=== PATIENT | female | born 1985 | race Caucasian/White ===

== ENCOUNTER 2022-12-15 03:38 | Observation (INO) ==
[2022-12-15 04:05] VITALS: BMI 30.2
[2022-12-15] MEDS ORDERED: CLEOCIN 600 MG IV PREMIX 600 MG/50 ML BAG IV ONE ×2 (04:35→05:04)
[2022-12-15] MEDS ORDERED: TORADOL 30 MG VIAL IVP ONE (04:35)
--- NOTE | 2022-12-15 04:35 | DR.EXTPAIN ---
HPI Time seen Time Seen by Provider: 12/15/22 04:35 PCP Primary Care Physician: DERICK HPI Comment HPI Comment: PATIENT IS 37YR OLD FEMALE IN ER WITH SWELLING AND PAIN IN RIGHT HAND. SHE WORKS AT [employer] AND PICKED UP SOME BOARDS AND PLINTER PUNCTURED HER HAND ON FRIDAY. HAVING THROBBING 10/10 PAIN. RED BUT NO DRAINAGE NOT NOTED. NO FEVER. Complaint/Symptoms Chief Complaint Doctor Comments: PAIN, SWELLING AND REDNESS RIGHT HAND AND PUNCTURE WOUND TIMES 2 DAYS. Chief Complaint:: PT STATED SINCE FRIDAY HER RIGHT HAND HAS BEEN SWOLLEN AND THROBBING, SHE CURRENTLY WORKS AT A [employer] AND SAID SHE PICKED UP SOME BOARDS AT WORK AND THINKS SHE MAY HAVE SPLINTERS IN HER HAND CAUSING IT TO BE SWOLLEN/RED/PAINFUL. Self Treatment fo Chief Complaint: NONE COVID-19 Coronavirus risk:travel/contact w/high risk person: No Has patient experienced Coronavirus symptoms: No Nurses notes reviewed Nurses Notes Review: Yes Source History Provided: Patient Mode of arrival Mode of Arrival: Ambulatory Timing Onset of Chief Complaint: 12/12/22 PMH PMH Past Medical History: Yes Past Medical History: GERD Past Surgical History: No Family History History of Family Medical Conditions: Yes Family Medical History: Diabetes Mellitus, Cancer and Heart Failure Social History Alcohol Use: Occasionally Do you use any recreational Drugs:: No Lives With: Significant Other Lives Where: Home Travel Risk Coronavirus risk:travel/contact w/high risk person: No Has patient experienced Coronavirus symptoms: No Infectious screening In the last 2 months have you had wt loss of >10#?: NO Have you had fever, night sweats or hemotysis?: No Have you traveled outside the country in the last 6 months?: No Isolation: Standard ROS Review of Systems Constitutional: No Symptoms Reported; negative Fever Eyes: No Symptoms Reported ENTM: No Symptoms Reported Respiratoy: No Symptoms Reported Cardiovascular: No Symptoms Reported Gastrointestinal/Abdominal: No Symptoms Reported Genitourinary: No Symptoms Reported Neurological: No Symptoms Reported Musculoskeletal: Hand (SWELLING, REDNESS AND PAIN RIGHT HAND.) Integumentary: Other (SWELLING, REDNESS AND TENDERNESS RT HAND. ) Hematologic/Lymphatic: No Symptoms Reported Endocrine: No Symptoms Reported Psychiatric: No Symptoms Reported All Other Systems: Reviewed and Negative PE Vital Signs Vitals: Temperature 98.7 F Pulse Rate 116 Respiratory Rate 20 Blood Pressure 136/99 O2 Sat by Pulse Oximetry 97 General Limitations: No Limitations General Appearance: Alert and In No Apparent Distress Head Head Exam: Normal Inspection Eyes Eye exam: Normal Appearance; negative Scleral Icterus or Conjunctival Injection ENT ENT Exam: Normal Exam Neck Neck Exam: Normal Inspection Chest Chest Inspection: Normal Inspection Respiratory Respiratory Exam: Normal Lung Sounds Bilat Respiratory Exam: Bilateral: Clear to Auscultation Cardiovascular Cardiovascular Exam: Regular Rate Abdominal Exam Abdominal Exam: Normal Inspection Extremities Extremities Exam: Tenderness (RT HAND WITH SWELLING AND REDNESS.) Back Back Exam: Normal Inspection Neurological Neurological Exam: Alert Psychiatric Psychiatric Exam: Normal Affect and Normal Mood Skin Skin Exam: Erythema Type of Lesion: Abscess (CELLULITIS RT HAND.) Distribution: RUE Description: Tenderness MDM Differential Diagnosis Differential Diagnosis: Other (CELLULITIS RT HAND. PUNCTURE WOUND RT HAND.) COURSE Treatment Treatment: SEE ORDERS DONE WHILE PATIENT WAS IN ER. Consultation Consultation Comments: DISCUSSED PATIENT WITH DR. ZAIDI. SHE WILL ADMIT PATIENT. Education/Counseling Education/Counseling: Patient and Family Educated On: Treatment and Diagnosis ROR Labs Reviewed Laboratory Results Reviewed?: Yes Result Diagrams: 12/15/22 04:49 12/15/22 04:49 Laboratory: WBC 11.7 X10^3/uL (3.6-10.0) H 12/15/22 04:49 RBC 4.55 X10^6/uL (3.5-5.4) 12/15/22 04:49 Hgb 13.3 g/dL (12.0-16.0) 12/15/22 04:49 Hct 39.7 % (36.0-47.0) 12/15/22 04:49 MCV 87.1 fL (80.0-100.0) 12/15/22 04:49 MCH 29.3 pg (27.0-34.0) 12/15/22 04:49 MCHC 33.6 g/dL (33.0-35.0) 12/15/22 04:49 RDW 13.5 % (11.6-16.5) 12/15/22 04:49 Plt Count 360 X10^3/uL (150.0-450.0) 12/15/22 04:49 MPV 7.2 fL (7.4-11.0) L 12/15/22 04:49 Neut % (Auto) 69.3 % (42.0-75.0) 12/15/22 04:49 Lymph % (Auto) 19.4 % (21.0-51.0) L 12/15/22 04:49 [place] % (Auto) 7.6 % (0.0-13.0) 12/15/22 04:49 Eos % (Auto) 2.8 % (0.9-2.9) 12/15/22 04:49 Baso % (Auto) 0.9 % (0.2-1.0) 12/15/22 04:49 Neut # (Auto) 8.1 x10^3/uL (2.2-4.8) H 12/15/22 04:49 Lymph # (Auto) 2.3 X10^3/uL (1.3-2.9) 12/15/22 04:49 [place] # (Auto) 0.9 x10^3/uL (0.3-0.8) H 12/15/22 04:49 Eos # (Auto) 0.3 x10^3/uL (0.0-0.2) H 12/15/22 04:49 Baso # (Auto) 0.1 X10^3/uL (0.0-0.1) 12/15/22 04:49 Absolute Nucleated RBC 0.0 /100WBC 12/15/22 04:49 Sodium 135 mmol/L (136-145) L 12/15/22 04:49 Corrected Sodium 135 mmol/L (136-145) L 12/15/22 04:49 Potassium 3.8 mmol/L (3.5-5.1) 12/15/22 04:49 Chloride 104 mmol/L (98-107) 12/15/22 04:49 Carbon Dioxide 24.9 mmol/L (21-32) 12/15/22 04:49 BUN 12 mg/dL (7-18) 12/15/22 04:49 Creatinine 0.77 mg/dL (0.55-1.02) 12/15/22 04:49 Est GFR (MDRD) Af Amer > 60 (>60) 12/15/22 04:49 Est GFR (MDRD) Non-Af > 60 (>60) 12/15/22 04:49 Glucose 120 mg/dL (65-99) H 12/15/22 04:49 Calcium 8.7 mg/dL (8.5-10.1) 12/15/22 04:49 Corrected Calcium TNP 12/15/22 04:49 Total Bilirubin 0.20 mg/dL (0.2-1.0) 12/15/22 04:49 AST 13 Units/L (15-37) L 12/15/22 04:49 ALT 19 Units/L (12-78) 12/15/22 04:49 Alkaline Phosphatase 108 Units/L (46-116) 12/15/22 04:49 Total Protein 7.3 g/dL (6.4-8.2) 12/15/22 04:49 Albumin 3.6 g/dL (3.4-5.0) 12/15/22 04:49 Globulin 3.7 g/dL (2.5-4.5) 12/15/22 04:49 Albumin/Globulin Ratio 1.0 Ratio (1.1-2.1) L 12/15/22 04:49 Opioid Opioid Risk Tool Age (Sammy box if 16-45): Yes Total: 1 Total Score Risk Category: Low Risk Copyright: Yash LARSON predicting aberrant behaviors Discharge Plan Diagnosis Discharge Problem: Cellulitis of hand, right, Puncture wound of hand, right Discharge Plan Patient Disposition: ADMITTED INPATIENT Condition: Stable
[2022-12-15] MEDS ORDERED: ADACEL or BOOSTRIX TDaP VACCINE IM ONE ×2 (04:39→05:04)
[2022-12-15] MEDS ORDERED: TORADOL 30 MG VIAL ONE (05:03)
[2022-12-15 05:11] LABS: BASOPHILS # (AUTO) 0.1 X10^3/uL (0.0-0.1); BASOPHILS % (AUTO) 0.9 % (0.2-1.0); EOSINOPHILS # (AUTO) 0.3 x10^3/uL (0.0-0.2); EOSINOPHILS % (AUTO) 2.8 % (0.9-2.9); HEMATOCRIT 39.7 % (36.0-47.0); HEMOGLOBIN 13.3 g/dL (12.0-16.0); LYMPHOCYTES # (AUTO) 2.3 X10^3/uL (1.3-2.9); LYMPHOCYTES % (AUTO) 19.4 % (21.0-51.0); MEAN CORPUSCULAR HEMOGLOBIN 29.3 pg (27.0-34.0); MEAN CORPUSCULAR HGB CONC 33.6 g/dL (33.0-35.0); MEAN CORPUSCULAR VOLUME 87.1 fL (80.0-100.0); MEAN PLATELET VOLUME 7.2 fL (7.4-11.0); MONOCYTES # (AUTO) 0.9 x10^3/uL (0.3-0.8); MONOCYTES % (AUTO) 7.6 % (0.0-13.0); NEUTROPHILS # (AUTO) 8.1 x10^3/uL (2.2-4.8); NEUTROPHILS % (AUTO) 69.3 % (42.0-75.0); RED BLOOD COUNT 4.55 X10^6/uL (3.5-5.4); RED CELL DISTRIBUTION WIDTH 13.5 % (11.6-16.5); WHITE BLOOD COUNT 11.7 X10^3/uL (3.6-10.0)
[2022-12-15 05:20] LABS: ALANINE AMINOTRANSFERASE 19 Units/L (12-78); ALBUMIN 3.6 g/dL (3.4-5.0); ALKALINE PHOSPHATASE 108 Units/L (46-116); ASPARTATE AMINO TRANSFERASE 13 Units/L (15-37); BLOOD UREA NITROGEN 12 mg/dL (7-18); CALCIUM 8.7 mg/dL (8.5-10.1); CARBON DIOXIDE 24.9 mmol/L (21-32); CHLORIDE 104 mmol/L (98-107); COR NA(FOR HYPERGLY) 135 mmol/L (136-145); CREATININE 0.77 mg/dL (0.55-1.02); SODIUM 135 mmol/L (136-145); TOTAL PROTEIN 7.3 g/dL (6.4-8.2); eGFR NON BLACK RACES > 60 (>60)
[2022-12-15] MEDS ORDERED: NS 1,000 ML IV 1,000 ML ONE (05:20)
[2022-12-15] MEDS: NS 1,000 ML IV 1,000 ML IV SCH ×3 (05:24→23:00)
[2022-12-15] MEDS ORDERED: ZOFRAN TAB 4 MG PO PRN (07:21)
--- NOTE | 2022-12-15 11:00 | DR.H&P ---
H&P History & Physical for Day of: H&P Date: 12/15/22 Chief Complaint Chief Complaint: right hand pain and swelling Allergies Allergies Allergy/AdvReac Type Severity Reaction Status Date / Time No Known Allergies Allergy Verified 12/15/22 05:00 History of Present Illness History of Present Illness: Ms Luz is a 37y/o female with no pertinent medical history presented with worsening right hand pain and swelling. She had an injury at work on where she was moving some wooden boards and had some splinters. She had a puncture wound by the thumb and noticed increased redness, pain and swelling. She states there was some drainage from that area. She had some tightness in her hand. In the ER, all her labs were normal. Blood Cx were collected and she was started on IV Clindamycin. She states redness and swelling is slightly better today. Her pain has been well-controlled. She has not noticed any drainage. Denies fever or chills. She did get the Tdap vaccine in the ER. Labs reviewed Plan: will order CT of right hand to evaluate further, surgery consult for possible I&D. Continue pain control and IV Clindamycin. Follow Cx. Monitor AM labs. Past Medical History Past Medical History: GERD Family History Family Medical History: Diabetes Mellitus, Cancer, Coronary Artery Disease and Hypertension Social History Does patient currently use any type of tobacco product: Yes Have you used tobacco products in the last 12 months: Yes Type of Tobacco Use: Cigarettes How many years tobacco product used: 10 Does any household member use tobacco: Yes Alcohol Use: None Drug Use: None Medications Home Medications: No Known Allergies Allergy (Verified 12/15/22 05:00) CONTINUE taking the following medications NK 12/15/22 [History] Labs Result Diagrams: 12/15/22 04:49 12/15/22 04:49 Labs: Laboratory WBC 11.7 X10^3/uL (3.6-10.0) H 12/15/22 04:49 RBC 4.55 X10^6/uL (3.5-5.4) 12/15/22 04:49 Hgb 13.3 g/dL (12.0-16.0) 12/15/22 04:49 Hct 39.7 % (36.0-47.0) 12/15/22 04:49 MCV 87.1 fL (80.0-100.0) 12/15/22 04:49 MCH 29.3 pg (27.0-34.0) 12/15/22 04:49 MCHC 33.6 g/dL (33.0-35.0) 12/15/22 04:49 RDW 13.5 % (11.6-16.5) 12/15/22 04:49 Plt Count 360 X10^3/uL (150.0-450.0) 12/15/22 04:49 MPV 7.2 fL (7.4-11.0) L 12/15/22 04:49 Neut % (Auto) 69.3 % (42.0-75.0) 12/15/22 04:49 Lymph % (Auto) 19.4 % (21.0-51.0) L 12/15/22 04:49 [place] % (Auto) 7.6 % (0.0-13.0) 12/15/22 04:49 Eos % (Auto) 2.8 % (0.9-2.9) 12/15/22 04:49 Baso % (Auto) 0.9 % (0.2-1.0) 12/15/22 04:49 Neut # (Auto) 8.1 x10^3/uL (2.2-4.8) H 12/15/22 04:49 Lymph # (Auto) 2.3 X10^3/uL (1.3-2.9) 12/15/22 04:49 [place] # (Auto) 0.9 x10^3/uL (0.3-0.8) H 12/15/22 04:49 Eos # (Auto) 0.3 x10^3/uL (0.0-0.2) H 12/15/22 04:49 Baso # (Auto) 0.1 X10^3/uL (0.0-0.1) 12/15/22 04:49 Absolute Nucleated RBC 0.0 /100WBC 12/15/22 04:49 Sodium 135 mmol/L (136-145) L 12/15/22 04:49 Corrected Sodium 135 mmol/L (136-145) L 12/15/22 04:49 Potassium 3.8 mmol/L (3.5-5.1) 12/15/22 04:49 Chloride 104 mmol/L (98-107) 12/15/22 04:49 Carbon Dioxide 24.9 mmol/L (21-32) 12/15/22 04:49 BUN 12 mg/dL (7-18) 12/15/22 04:49 Creatinine 0.77 mg/dL (0.55-1.02) 12/15/22 04:49 Est GFR (MDRD) Af Amer > 60 (>60) 12/15/22 04:49 Est GFR (MDRD) Non-Af > 60 (>60) 12/15/22 04:49 Glucose 120 mg/dL (65-99) H 12/15/22 04:49 Calcium 8.7 mg/dL (8.5-10.1) 12/15/22 04:49 Corrected Calcium TNP 12/15/22 04:49 Total Bilirubin 0.20 mg/dL (0.2-1.0) 12/15/22 04:49 AST 13 Units/L (15-37) L 12/15/22 04:49 ALT 19 Units/L (12-78) 12/15/22 04:49 Alkaline Phosphatase 108 Units/L (46-116) 12/15/22 04:49 Total Protein 7.3 g/dL (6.4-8.2) 12/15/22 04:49 Albumin 3.6 g/dL (3.4-5.0) 12/15/22 04:49 Globulin 3.7 g/dL (2.5-4.5) 12/15/22 04:49 Albumin/Globulin Ratio 1.0 Ratio (1.1-2.1) L 12/15/22 04:49 Review of Systems Constitutional: No Symptoms Reported Eyes: No Symptoms Reported ENT: No Symptoms Reported Respiratory: No Symptoms Reported Cardiovascular: No Symptoms Reported Gastrointestinal: No Symptoms Reported Genitourinary: No Symptoms Reported Musculoskeletal: Hand Pain Skin: Wound Neurological: No Symptoms Reported Physical Exam Vital Signs: Temperature 98.0 F Pulse Rate [Left Brachial] 89 Pulse Rate 116 Respiratory Rate 20 Blood Pressure 136/99 O2 Sat by Pulse Oximetry 96 Oriented: Normal Eyes: Normal Ear: Normal Nose: Normal Throat: Normal Respiratory: Clear Throughout Cardiovascular: Normal Auscultation: Bowel Sounds: Normal Palpation: Normal Tenderness: Normal Skin: Tender and Wound (right hand erythema, swelling, tenderness worse around the thumb, limited ROM) Musculoskeletal: Right and Hand Psychiatric: Normal Mood Description: Calm Affect: Normal Speech Pattern: Clear and Appropriate Assessment/Plan (1) Cellulitis of right hand: Status: Acute (2) Puncture wound: Status: Acute Review H&P Reviewed: Yes Patient was examined?: Yes
[2022-12-15] MEDS: MORPHINE SULFATE INJ 4 MG IVP PRN (11:53)
--- NOTE | 2022-12-15 12:06 | CT ---
HISTORYswelling possible celluitis right hand punture woundSTUDYCTA right upper extremityCOMPARISONNoneTECHNIQUEMultiple axial images of the right upper extremity were obtained from the thoracic inlet to the finger tip after the administration of IV contrast. 3D reconstructions utilizing axial MIPS imaging was performed and reviewed. Dose reduction techniques including Automated Exposure Control (AEC) and adjustment of mA and kV were utilized.FINDINGSNormal opacification of the innominate artery, subclavian artery, axillary artery, brachial artery, ulnar and radial arteries as well as the palmar arch are observed. No evidence for blush injury can be identified. Minimal amount of soft tissue swelling near the thenar eminence is incidentally noted without fluid collection within the hand other remainder of the right upper extremity. Bony structures appear intact. The musculature demonstrates normal enhancement.IMPRESSIONMinimal soft tissue swelling of the thenar eminence of the hand. No fluid collection can be identified. Otherwise unremarkable CTA of the right upper extremity.Electronically signed by: JEN SCHWARTZ (Dec 15, 2022 12:05:12)
[2022-12-15] MEDS: CLEOCIN 600 MG IV PREMIX 600 MG/50 ML BAG IV SCH ×2 (13:55→21:21)
[2022-12-15] MEDS ORDERED: CLEOCIN VIAL 600 MG 600 MG in D5W 50 ML IV 50 ML IV SCH (14:00)
[2022-12-15] MEDS ORDERED: TYLENOL 500 MG TAB EXTRA STRENGTH PO PRN (17:09)
[2022-12-15] MEDS: TORADOL 30 MG VIAL IVP PRN (17:14)
--- NOTE | 2022-12-15 19:24 | DR.CONSULT ---
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 New onset of redness and swelling of the left thumb and thenar eminence. Otherwise healthy. Past Medical History Past Medical History: GERD Family History Family Medical History: Diabetes Mellitus, Cancer, Coronary Artery Disease and Hypertension Social History Does patient currently use any type of tobacco product: Yes Have you used tobacco products in the last 12 months: Yes Type of Tobacco Use: Cigarettes How many years tobacco product used: 10 Does any household member use tobacco: Yes Alcohol Use: None Drug Use: None Medications Home Medications: No Known Allergies Allergy (Verified 12/15/22 05:00) CONTINUE taking the following medications NK 12/15/22 [History] Review of Systems Constitutional: See HPI Eyes: No Symptoms Reported ENT: No Symptoms Reported Respiratory: No Symptoms Reported Cardiovascular: No Symptoms Reported Gastrointestinal: No Symptoms Reported Genitourinary: No Symptoms Reported Musculoskeletal: No Symptoms Reported Skin: See HPI Neurological: No Symptoms Reported Physical Exam Vital Signs: Temperature 97.8 F Pulse Rate [Left Brachial] 87 Pulse Rate 116 Respiratory Rate 20 Blood Pressure [Left Arm] 127/90 Blood Pressure 136/99 O2 Sat by Pulse Oximetry 98 Oriented: Normal, Time, Person and Place Eyes: Normal Ear: Normal Nose: Normal Throat: Normal Respiratory: Clear Throughout Cardiovascular: Normal : Normal Palpation: Normal Tenderness: Normal Skin: Other (redness, swelling and induration of proximal right thumb and right thenar eminence, CT showed no obvious abscess. ) Musculoskeletal: Normal Mood Description: Calm Affect: Normal Plan (1) Cellulitis of right hand: Status: Acute Plan: Continue IV antibiotics. Although no obvious abscess I think she will need incision and drainage tomorrow. (2) Puncture wound: Status: Acute
[2022-12-15] MEDS: BENADRYL CAP/TAB 25 MG PO SCH (20:40)
[2022-12-15] MEDS: TYLENOL 500 MG TAB EXTRA STRENGTH PO SCH (20:41)
[2022-12-16] MEDS: NS 1,000 ML IV 1,000 ML IV SCH ×4 (02:03→21:16)
[2022-12-16 05:46] LABS: ALANINE AMINOTRANSFERASE 19 Units/L (12-78); ALBUMIN 2.7 g/dL (3.4-5.0); ALKALINE PHOSPHATASE 85 Units/L (46-116); ASPARTATE AMINO TRANSFERASE 14 Units/L (15-37); BLOOD UREA NITROGEN 13 mg/dL (7-18); CALCIUM 7.7 mg/dL (8.5-10.1); CHLORIDE 107 mmol/L (98-107); COR CA(FOR HYPOALB) 8.7 mg/dL (8.5-10.1); CREATININE 0.74 mg/dL (0.55-1.02); SODIUM 137 mmol/L (136-145); TOTAL PROTEIN 5.6 g/dL (6.4-8.2); eGFR NON BLACK RACES > 60 (>60)
[2022-12-16] MEDS: CLEOCIN 600 MG IV PREMIX 600 MG/50 ML BAG IV SCH ×3 (05:55→21:16)
[2022-12-16 06:11] LABS: BASOPHILS # (AUTO) 0.1 X10^3/uL (0.0-0.1); BASOPHILS % (AUTO) 0.9 % (0.2-1.0); EOSINOPHILS # (AUTO) 0.3 x10^3/uL (0.0-0.2); EOSINOPHILS % (AUTO) 4.5 % (0.9-2.9); HEMATOCRIT 34.5 % (36.0-47.0); HEMOGLOBIN 11.6 g/dL (12.0-16.0); LYMPHOCYTES % (AUTO) 31.1 % (21.0-51.0); MEAN CORPUSCULAR HEMOGLOBIN 29.5 pg (27.0-34.0); MEAN CORPUSCULAR HGB CONC 33.7 g/dL (33.0-35.0); MEAN CORPUSCULAR VOLUME 87.6 fL (80.0-100.0); MEAN PLATELET VOLUME 7.2 fL (7.4-11.0); MONOCYTES # (AUTO) 0.6 x10^3/uL (0.3-0.8); MONOCYTES % (AUTO) 8.7 % (0.0-13.0); NEUTROPHILS # (AUTO) 3.6 x10^3/uL (2.2-4.8); NEUTROPHILS % (AUTO) 54.8 % (42.0-75.0); RED BLOOD COUNT 3.94 X10^6/uL (3.5-5.4); RED CELL DISTRIBUTION WIDTH 13.4 % (11.6-16.5); WHITE BLOOD COUNT 6.6 X10^3/uL (3.6-10.0)
--- NOTE | 2022-12-16 09:31 | PCM.PROG ---
Progress Note Progress Note for Day of Date of Exam: 12/16/22 Subjective Subjective: Patient seen at bedside, doing better. Her right hand redness has improved. She still has mild swelling and pain. CT did show soft tissue swelling but no obvious pus pocket. Dr Packer saw the patient and plans to do I&D today. Labs reviewed Plan: continue IV antibiotics and pain control. Follow Cx. I&D today follow wound Cx. Follow surgery recommendations. NPO for now. Monitor AM labs. Past Medical Family Social History Allergies: Allergies No Known Allergies Allergy (Verified 12/15/22 05:00) Vital Signs and I&O's Vital Signs: Temperature 98.6 F Pulse Rate [Left Brachial] 76 Pulse Rate 116 Respiratory Rate 18 Blood Pressure [Right Arm] 143/92 Blood Pressure [Left Arm] 127/90 Blood Pressure 136/99 O2 Sat by Pulse Oximetry 95 Intake and Output: Intake & Output 12/13/22 12/14/22 12/15/22 12/16/22 23:59 23:59 23:59 23:59 Intake Total 1881 / 1881 911 / 911 Balance 1881 / 1881 911 / 911 Physical Exam Oriented: Normal, Time, Person and Place Eyes: Normal Ear: Normal Nose: Normal Throat: Normal Cardiovascular: Normal Auscultation: Bowel Sounds: Normal Tenderness: Normal Skin: Other (redness, swelling and induration of proximal right thumb and right thenar eminence) Musculoskeletal: Right and Hand (limited ROM due to swelling and pain ) Psychiatric: Normal Mood Description: Calm Affect: Normal Speech Pattern: Clear and Appropriate Laboratory and Diagnostics Result Diagrams: 12/16/22 06:00 12/16/22 05:16 Labs: Laboratory WBC 6.6 X10^3/uL (3.6-10.0) 12/16/22 06:00 RBC 3.94 X10^6/uL (3.5-5.4) 12/16/22 06:00 Hgb 11.6 g/dL (12.0-16.0) L 12/16/22 06:00 Hct 34.5 % (36.0-47.0) L 12/16/22 06:00 MCV 87.6 fL (80.0-100.0) 12/16/22 06:00 MCH 29.5 pg (27.0-34.0) 12/16/22 06:00 MCHC 33.7 g/dL (33.0-35.0) 12/16/22 06:00 RDW 13.4 % (11.6-16.5) 12/16/22 06:00 Plt Count 290 X10^3/uL (150.0-450.0) 12/16/22 06:00 MPV 7.2 fL (7.4-11.0) L 12/16/22 06:00 Neut % (Auto) 54.8 % (42.0-75.0) 12/16/22 06:00 Lymph % (Auto) 31.1 % (21.0-51.0) 12/16/22 06:00 [place] % (Auto) 8.7 % (0.0-13.0) 12/16/22 06:00 Eos % (Auto) 4.5 % (0.9-2.9) H 12/16/22 06:00 Baso % (Auto) 0.9 % (0.2-1.0) 12/16/22 06:00 Neut # (Auto) 3.6 x10^3/uL (2.2-4.8) 12/16/22 06:00 Lymph # (Auto) 2.0 X10^3/uL (1.3-2.9) 12/16/22 06:00 [place] # (Auto) 0.6 x10^3/uL (0.3-0.8) 12/16/22 06:00 Eos # (Auto) 0.3 x10^3/uL (0.0-0.2) H 12/16/22 06:00 Baso # (Auto) 0.1 X10^3/uL (0.0-0.1) 12/16/22 06:00 Absolute Nucleated RBC 0.0 /100WBC 12/16/22 06:00 Sodium 137 mmol/L (136-145) 12/16/22 05:16 Corrected Sodium TNP 12/16/22 05:16 Potassium 4.1 mmol/L (3.5-5.1) 12/16/22 05:16 Chloride 107 mmol/L (98-107) 12/16/22 05:16 Carbon Dioxide 22.0 mmol/L (21-32) 12/16/22 05:16 BUN 13 mg/dL (7-18) 12/16/22 05:16 Creatinine 0.74 mg/dL (0.55-1.02) 12/16/22 05:16 Est GFR (MDRD) Af Amer > 60 (>60) 12/16/22 05:16 Est GFR (MDRD) Non-Af > 60 (>60) 12/16/22 05:16 Glucose 105 mg/dL (65-99) H 12/16/22 05:16 Calcium 7.7 mg/dL (8.5-10.1) L 12/16/22 05:16 Corrected Calcium 8.7 mg/dL (8.5-10.1) 12/16/22 05:16 Total Bilirubin 0.20 mg/dL (0.2-1.0) 12/16/22 05:16 AST 14 Units/L (15-37) L 12/16/22 05:16 ALT 19 Units/L (12-78) 12/16/22 05:16 Alkaline Phosphatase 85 Units/L (46-116) 12/16/22 05:16 Total Protein 5.6 g/dL (6.4-8.2) L 12/16/22 05:16 Albumin 2.7 g/dL (3.4-5.0) L 12/16/22 05:16 Globulin 2.9 g/dL (2.5-4.5) 12/16/22 05:16 Albumin/Globulin Ratio 0.9 Ratio (1.1-2.1) L 12/16/22 05:16 Plan (1) Cellulitis of right hand: Status: Acute (2) Puncture wound: Status: Acute
[2022-12-16] MEDS: TORADOL 30 MG VIAL IVP PRN (11:47)
[2022-12-16] MEDS ORDERED: BETADINE SOLN ONE (11:56)
[2022-12-16] MEDS ORDERED: ANCEF VIAL 1 GRAM ONE (12:13)
[2022-12-16] MEDS ORDERED: MARCAINE 0.5% ONE (12:13)
[2022-12-16] MEDS ORDERED: LR 1,000 ML IV 1,000 ML IV ONE (12:14)
[2022-12-16] MEDS ORDERED: NS 100 ML IV 100 ML ONE (12:14)
[2022-12-16] MEDS ORDERED: FENTANYL VIAL INJ 100 mcg ONE (12:28)
[2022-12-16] MEDS ORDERED: VERSED ONE (12:28)
[2022-12-16] MEDS ORDERED: POLYMYXIN B SULFATE ONE (12:37)
--- NOTE | 2022-12-16 13:21 | OR.IMMED ---
IMMEDIATE POST-OP NOTE Immediate Post-Op Note Pre-Op Diagnosis: abscess/ cellulitis right thumb and thenar eminence Post-Op Diagnosis: same Procedure: Incise and drain skin of palmar right proximal phalanx skin Description of Procedure: see operative summary Surgeon/Visual Display Manager: Ochoa Findings: as above Estimated Blood Loss: minimal Complications: none Post Hospital Plans and Medications: Return to floor, begin diet, continue IV antibiotics, await culture results, pack wound daily Final Diagnosis: as above
[2022-12-16] MEDS: MORPHINE SULFATE INJ 4 MG IVP PRN (19:42)
[2022-12-16] MEDS: TYLENOL 500 MG TAB EXTRA STRENGTH PO SCH (21:14)
[2022-12-16] MEDS: BENADRYL CAP/TAB 25 MG PO SCH (21:15)
[2022-12-17] MEDS: CLEOCIN 600 MG IV PREMIX 600 MG/50 ML BAG IV SCH ×3 (05:41→21:00)
[2022-12-17 06:39] LABS: BASOPHILS % (AUTO) 0.9 % (0.2-1.0); EOSINOPHILS # (AUTO) 0.2 x10^3/uL (0.0-0.2); HEMATOCRIT 32.3 % (36.0-47.0); LYMPHOCYTES # (AUTO) 1.6 X10^3/uL (1.3-2.9); LYMPHOCYTES % (AUTO) 32.9 % (21.0-51.0); MEAN CORPUSCULAR HEMOGLOBIN 29.7 pg (27.0-34.0); MEAN CORPUSCULAR HGB CONC 33.9 g/dL (33.0-35.0); MEAN CORPUSCULAR VOLUME 87.5 fL (80.0-100.0); MEAN PLATELET VOLUME 7.8 fL (7.4-11.0); MONOCYTES # (AUTO) 0.5 x10^3/uL (0.3-0.8); MONOCYTES % (AUTO) 10.8 % (0.0-13.0); NEUTROPHILS # (AUTO) 2.5 x10^3/uL (2.2-4.8); NEUTROPHILS % (AUTO) 50.4 % (42.0-75.0); RED CELL DISTRIBUTION WIDTH 13.2 % (11.6-16.5); WHITE BLOOD COUNT 4.9 X10^3/uL (3.6-10.0)
[2022-12-17 06:50] LABS: BLOOD UREA NITROGEN 9 mg/dL (7-18); CALCIUM 7.4 mg/dL (8.5-10.1); CARBON DIOXIDE 22.8 mmol/L (21-32); CHLORIDE 108 mmol/L (98-107); CREATININE 0.68 mg/dL (0.55-1.02); SODIUM 139 mmol/L (136-145); eGFR NON BLACK RACES > 60 (>60)
[2022-12-17] MEDS: NS 1,000 ML IV 1,000 ML IV SCH ×4 (08:48→22:00)
[2022-12-17] MEDS: TYLENOL 500 MG TAB EXTRA STRENGTH PO SCH (20:38)
[2022-12-17] MEDS: BENADRYL CAP/TAB 25 MG PO SCH (20:38)
--- NOTE | 2022-12-17 23:06 | NOTE.SOAP ---
Soap Note Note for Day of Date of Exam: 12/17/22 Subjective Data Subjective Data: s/p I & D abscess/cellulitis right thenar eminence . Objective Data Temperature: 98.1 F Pulse Rate: 92 Respiratory Rate: 20 Blood Pressure: 114/68 O2 Sat by Pulse Oximetry: 96 Objective Data: Wound to be visualized tomorrow. Wound growing gram positive cocci. Assessment Assessment: Cellulitis right thenar eminence . Plan Plan: Hopefully d/c home with daily wound care and po antibiotics if final culture and sensitivities back.
[2022-12-18] MEDS: NS 1,000 ML IV 1,000 ML IV SCH ×3 (01:30→10:38)
[2022-12-18] MEDS: CLEOCIN 600 MG IV PREMIX 600 MG/50 ML BAG IV SCH (05:14)
[2022-12-18 08:37] VITALS: BP 127/74
[2022-12-18] MEDS ORDERED: STERILE WATER IRRIGATION IR ONE (09:16)
[2022-12-18] MEDS: TORADOL 30 MG VIAL IVP PRN (09:32)
--- NOTE | 2022-12-18 11:49 | W.DIS.FURT ---
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 Presented with redness and swelling of the proximal palmar right thumb and thenar eminence with redness. CT scan did not show obvious abscess however there was fluctuance noted. She was admitted at that time and placed on IV antibiotics. The next day , the 16 of December she underwent incision and drainage in this area. She has done well. Redness is resolving. Cultures grew methicillin-sensitive staphylococcus aureus. She is discharged home on clindamycin 150 mg four times a day and will follow up with me in 1 week. She will pack the wound daily. Vital Signs: Vital Signs (72 hours) 12/17/22 23:11 12/15/22 11:53 12/15/22 12:23 Temperature 98.1 F Pulse Rate 92 H Pulse Rate [Left Brachial] Respiratory Rate 20 20 20 Blood Pressure 114/68 Blood Pressure [Left Arm] Blood Pressure [Right Arm] O2 Sat by Pulse Oximetry 96 Oxygen Delivery Method 12/15/22 12:00 12/15/22 16:00 12/15/22 17:14 Temperature 97.8 F 97.8 F Pulse Rate Pulse Rate [Left Brachial] 102 H 87 Respiratory Rate 20 18 20 Blood Pressure Blood Pressure [Left Arm] 144/78 127/90 Blood Pressure [Right Arm] O2 Sat by Pulse Oximetry 98 98 Oxygen Delivery Method Room Air 12/15/22 17:44 12/15/22 20:41 12/15/22 19:00 Temperature Pulse Rate Pulse Rate [Left Brachial] Respiratory Rate 20 18 Blood Pressure Blood Pressure [Left Arm] Blood Pressure [Right Arm] O2 Sat by Pulse Oximetry Oxygen Delivery Method Room Air 12/15/22 20:00 12/15/22 21:41 12/16/22 00:00 Temperature 98.4 F 98.2 F Pulse Rate Pulse Rate [Left Brachial] 82 75 Respiratory Rate 18 18 18 Blood Pressure Blood Pressure [Left Arm] Blood Pressure [Right Arm] 121/69 121/83 O2 Sat by Pulse Oximetry 97 97 Oxygen Delivery Method Room Air Room Air 12/16/22 04:00 12/16/22 07:00 12/16/22 08:00 Temperature 97.9 F 98.6 F Pulse Rate Pulse Rate [Left Brachial] 77 76 Respiratory Rate 18 18 Blood Pressure Blood Pressure [Left Arm] Blood Pressure [Right Arm] 132/82 143/92 O2 Sat by Pulse Oximetry 98 95 Oxygen Delivery Method Room Air Room Air Room Air 12/16/22 11:39 12/16/22 11:47 12/16/22 12:34 Temperature 98.3 F Pulse Rate 74 Pulse Rate [Left Brachial] 77 Respiratory Rate 18 18 17 Blood Pressure 149/101 Blood Pressure [Left Arm] Blood Pressure [Right Arm] 140/91 O2 Sat by Pulse Oximetry 98 96 Oxygen Delivery Method Room Air Room Air 12/16/22 13:20 12/16/22 13:35 12/16/22 13:50 Temperature 98.2 F Pulse Rate Pulse Rate [Left Brachial] 82 74 70 Respiratory Rate 18 18 20 Blood Pressure Blood Pressure [Left Arm] Blood Pressure [Right Arm] 121/72 110/66 130/72 O2 Sat by Pulse Oximetry 94 L 95 99 Oxygen Delivery Method Room Air Room Air Room Air 12/16/22 14:05 12/16/22 14:20 12/16/22 12:17 Temperature 98.1 F Pulse Rate Pulse Rate [Left Brachial] 73 65 Respiratory Rate 20 20 18 Blood Pressure Blood Pressure [Left Arm] Blood Pressure [Right Arm] 131/77 136/87 O2 Sat by Pulse Oximetry 98 99 Oxygen Delivery Method Room Air Room Air 12/16/22 16:00 12/16/22 19:42 12/16/22 20:12 Temperature 98.0 F Pulse Rate Pulse Rate [Left Brachial] 86 Respiratory Rate 20 20 20 Blood Pressure Blood Pressure [Left Arm] Blood Pressure [Right Arm] 122/79 O2 Sat by Pulse Oximetry 97 Oxygen Delivery Method Room Air 12/16/22 21:14 12/16/22 19:00 12/16/22 20:00 Temperature 98.0 F Pulse Rate Pulse Rate [Left Brachial] 92 H Respiratory Rate 20 18 Blood Pressure Blood Pressure [Left Arm] Blood Pressure [Right Arm] 141/87 O2 Sat by Pulse Oximetry 93 L Oxygen Delivery Method Room Air Room Air 12/17/22 00:00 12/16/22 22:14 12/17/22 04:00 Temperature 97.8 F 97.7 F Pulse Rate Pulse Rate [Left Brachial] 78 78 Respiratory Rate 18 20 18 Blood Pressure Blood Pressure [Left Arm] Blood Pressure [Right Arm] 110/65 105/60 O2 Sat by Pulse Oximetry 97 98 Oxygen Delivery Method Room Air Room Air 12/17/22 08:00 12/17/22 07:00 12/17/22 12:00 Temperature 98.5 F 98.1 F Pulse Rate Pulse Rate [Left Brachial] 77 85 Respiratory Rate 18 18 Blood Pressure Blood Pressure [Left Arm] Blood Pressure [Right Arm] 120/76 127/73 O2 Sat by Pulse Oximetry 97 97 Oxygen Delivery Method Room Air Room Air Room Air 12/17/22 16:00 12/17/22 20:38 12/17/22 19:00 Temperature 98.8 F Pulse Rate Pulse Rate [Left Brachial] 92 H Respiratory Rate 20 20 Blood Pressure Blood Pressure [Left Arm] Blood Pressure [Right Arm] 114/68 O2 Sat by Pulse Oximetry 96 Oxygen Delivery Method Room Air Room Air 12/17/22 20:00 12/18/22 00:00 12/17/22 21:38 Temperature 98.1 F 98.0 F Pulse Rate Pulse Rate [Left Brachial] 88 76 Respiratory Rate 18 18 20 Blood Pressure Blood Pressure [Left Arm] 128/79 129/82 Blood Pressure [Right Arm] O2 Sat by Pulse Oximetry 98 97 Oxygen Delivery Method Room Air Room Air 12/18/22 04:00 12/18/22 07:00 12/18/22 08:00 Temperature 97.8 F 99.1 F Pulse Rate Pulse Rate [Left Brachial] 71 80 Respiratory Rate 20 20 Blood Pressure Blood Pressure [Left Arm] 160/87 Blood Pressure [Right Arm] 127/74 O2 Sat by Pulse Oximetry 97 94 L Oxygen Delivery Method Room Air Room Air Room Air 12/18/22 09:32 12/18/22 10:02 Temperature Pulse Rate Pulse Rate [Left Brachial] Respiratory Rate 20 20 Blood Pressure Blood Pressure [Left Arm] Blood Pressure [Right Arm] O2 Sat by Pulse Oximetry Oxygen Delivery Method Labs: Laboratory Last Values WBC 4.9 X10^3/uL (3.6-10.0) 12/17/22 04:59 RBC 3.70 X10^6/uL (3.5-5.4) 12/17/22 04:59 Hgb 11.0 g/dL (12.0-16.0) L 12/17/22 04:59 Hct 32.3 % (36.0-47.0) L 12/17/22 04:59 MCV 87.5 fL (80.0-100.0) 12/17/22 04:59 MCH 29.7 pg (27.0-34.0) 12/17/22 04:59 MCHC 33.9 g/dL (33.0-35.0) 12/17/22 04:59 RDW 13.2 % (11.6-16.5) 12/17/22 04:59 Plt Count 247 X10^3/uL (150.0-450.0) 12/17/22 04:59 MPV 7.8 fL (7.4-11.0) 12/17/22 04:59 Neut % (Auto) 50.4 % (42.0-75.0) 12/17/22 04:59 Lymph % (Auto) 32.9 % (21.0-51.0) 12/17/22 04:59 [place] % (Auto) 10.8 % (0.0-13.0) 12/17/22 04:59 Eos % (Auto) 5.0 % (0.9-2.9) H 12/17/22 04:59 Baso % (Auto) 0.9 % (0.2-1.0) 12/17/22 04:59 Neut # (Auto) 2.5 x10^3/uL (2.2-4.8) 12/17/22 04:59 Lymph # (Auto) 1.6 X10^3/uL (1.3-2.9) 12/17/22 04:59 [place] # (Auto) 0.5 x10^3/uL (0.3-0.8) 12/17/22 04:59 Eos # (Auto) 0.2 x10^3/uL (0.0-0.2) 12/17/22 04:59 Baso # (Auto) 0.0 X10^3/uL (0.0-0.1) 12/17/22 04:59 Absolute Nucleated RBC 0.0 /100WBC 12/17/22 04:59 Sodium 139 mmol/L (136-145) 12/17/22 04:59 Corrected Sodium TNP 12/17/22 04:59 Potassium 3.6 mmol/L (3.5-5.1) 12/17/22 04:59 Chloride 108 mmol/L (98-107) H 12/17/22 04:59 Carbon Dioxide 22.8 mmol/L (21-32) 12/17/22 04:59 BUN 9 mg/dL (7-18) 12/17/22 04:59 Creatinine 0.68 mg/dL (0.55-1.02) 12/17/22 04:59 Est GFR (MDRD) Af Amer > 60 (>60) 12/17/22 04:59 Est GFR (MDRD) Non-Af > 60 (>60) 12/17/22 04:59 Glucose 92 mg/dL (65-99) 12/17/22 04:59 Calcium 7.4 mg/dL (8.5-10.1) L 12/17/22 04:59 Corrected Calcium 8.7 mg/dL (8.5-10.1) 12/16/22 05:16 Total Bilirubin 0.20 mg/dL (0.2-1.0) 12/16/22 05:16 AST 14 Units/L (15-37) L 12/16/22 05:16 ALT 19 Units/L (12-78) 12/16/22 05:16 Alkaline Phosphatase 85 Units/L (46-116) 12/16/22 05:16 Total Protein 5.6 g/dL (6.4-8.2) L 12/16/22 05:16 Albumin 2.7 g/dL (3.4-5.0) L 12/16/22 05:16 Globulin 2.9 g/dL (2.5-4.5) 12/16/22 05:16 Albumin/Globulin Ratio 0.9 Ratio (1.1-2.1) L 12/16/22 05:16 Reason For Visit: CELLULITIS RIGHT HAND, PUNTURE WOUND Discharge Date Discharge Date: 12/18/22 Discharge Diagnosis All Active Problems (Updated 12/15/22 @ 23:54 by MARYLU AVILA) Cellulitis of hand, right (Acute) Puncture wound of hand, right (Acute) Puncture wound (Acute) Cellulitis of right hand (Acute) Plan of Treatment: Continue with present treatment and follow up plan. Pt is to keep follow up appointment as instructed and take medications as ordered. 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 Presented with redness and swelling of the proximal palmar right thumb and thenar eminence with redness. CT scan did not show obvious abscess however there was fluctuance noted. She was admitted at that time and placed on IV antibiotics. The next day , the 16 of December she underwent incision and drainage in this area. She has done well. Redness is resolving. Cultures grew methicillin-sensitive staphylococcus aureus. She is discharged home on clindamycin 150 mg four times a day and will follow up with me in 1 week. She will pack the wound daily. Patient Disposition: HOME, SELF-CARE Condition: Stable Health Concerns: Post Hospitalization: new medications and changes needed to prevent readmission or further decline. Pt educated and given instructions on all concerns. Care Plan Goals: Problem: Pain/Alteration in Comfort Goal: Improve/ Resolve Pain; Achieve Pain Tolerance Instructions: Take pain medications as prescribed. Contact your primary care provider if your pain is unrelieved or worsens. Follow up with primary care provider as directed. Plan of Treatment: Continue with present treatment and follow up plan. Pt is to keep follow up appointment as instructed and take medications as ordered. Assessment: see above Prescription drug monitoring program results: PDMP reviewed and no concerns identified Prescriptions: New clindamycin HCl 300 mg Capsule 300 mg PO QID Qty: 40 0RF Orders to Discharge Patient Discharge Orders: Discharge (Routine); Ordered 12/18/22 Ordered By: Kashmir Packer Follow ups/Referrals Follow ups/Referrals: Kashmir Packer [STAFF PHYSICIAN] - 12/31/22 10:30 am Instructions Instructions: Cellulitis, Adult, Puncture Wound, [id number], Cellulitis, Adult, [id number] Stand Alone Forms: Excuse From Work or School, Patient Portal
--- NOTE | 2022-12-19 02:09 | DR.OPNOTE ---
OP NOTE Pre-Op Diagnosis: Cellulitis/abscess right thenar eminence Post-Op Diagnosis: same Procedure Date Date Of Procedure: 12/16/22 Procedure: PROCEDURE: INCISE AND DRAIN ABSCESS RIGHT THENAR EMINENCE NARRATIVE :The patient was taken to the operative suite and placed in the supine position. The right hand prepped and draped in sterile fashion. Intravenous sedation was administered and supervised by myself. Time out for the procedure obtained. Patient had redness over the palmar aspect of the proximal phalanx of the right thumb extending onto the right thenar eminence . This area infiltrated with 0.5% Marcaine and a two centimeter incision made along the lines of [place] of the right thenar eminence and small amount of purulent drainage obtained . This was cultured . The wound packed with 1/4 inch Nu-Gauze packing and anatomic dressing applied to the right hand. Patient taken back to her room in good condition. Type of Anesthesia: Local (0.5% Marcaine ) Anesthesia Comment: plus MAC Findings: as above Specimen/Pathology: cultures of abscess right thenar eminence Type of Fluids Used:: Lactated Ringers EBL: minimal Cultures: yes Complications:: none Needle/Sponge Count:: correct Disposition/Condition: Pt. tolerated procedure without difficulty. Patient taken back to her room in stable condition.
--- NOTE | 2022-12-19 13:08 | PCM.PROG ---
Progress Note Progress Note for Day of Date of Exam: 12/17/22 Subjective Subjective: Patient is resting in bed comfortably. She did have I&D yesterday and reports improvement in swelling and pain. No acute events overnight. Labs reviewed: Wbc 4.9, Hgb 11, Plt 247, Na 139, K 3.6, Creatinine 0.68, Glucose 92. Wound culture pending. Plan: continue IV antibiotics and pain control. Follow up wound culture results. Follow surgery recommendations. Diet restarted. Monitor AM labs. Past Medical Family Social History Allergies: Allergies No Known Allergies Allergy (Verified 12/15/22 05:00) Review of Systems ROS changes noted: see HPI Vital Signs and I&O's Vital Signs: Temperature 99.1 F Pulse Rate [Left Brachial] 80 Pulse Rate 92 Respiratory Rate 20 Blood Pressure [Right Arm] 127/74 Blood Pressure [Left Arm] 160/87 Blood Pressure 114/68 O2 Sat by Pulse Oximetry 94 Intake and Output: Intake & Output 12/16/22 12/17/22 12/18/22 12/19/22 23:59 23:59 23:59 23:59 Intake Total 4106 / 4106 4475 / 4475 1939 Output Total 1000 / 1000 Balance 3106 / 3106 4475 / 4475 1939 Physical Exam Oriented: Normal, Time, Person and Place Eyes: Normal Ear: Normal Nose: Normal Throat: Normal Cardiovascular: Normal : Normal Auscultation: Bowel Sounds: Normal Tenderness: Normal Skin: Other (redness, swelling proximal right thumb and right thenar eminence) Musculoskeletal: Right and Hand (limited ROM, in wound dressing) Psychiatric: Normal Mood Description: Calm Affect: Normal Speech Pattern: Clear and Appropriate Laboratory and Diagnostics Result Diagrams: 12/17/22 04:59 12/17/22 04:59 Labs: 12/16/22 13:01 Hand - Right Wound Gram Stain - Final 12/16/22 13:01 Hand - Right Wound Culture - Preliminary Staphylococcus Aureus 12/15/22 04:55 Blood Blood Culture - Preliminary 12/15/22 04:49 Blood Blood Culture - Preliminary Laboratory WBC 4.9 X10^3/uL (3.6-10.0) 12/17/22 04:59 RBC 3.70 X10^6/uL (3.5-5.4) 12/17/22 04:59 Hgb 11.0 g/dL (12.0-16.0) L 12/17/22 04:59 Hct 32.3 % (36.0-47.0) L 12/17/22 04:59 MCV 87.5 fL (80.0-100.0) 12/17/22 04:59 MCH 29.7 pg (27.0-34.0) 12/17/22 04:59 MCHC 33.9 g/dL (33.0-35.0) 12/17/22 04:59 RDW 13.2 % (11.6-16.5) 12/17/22 04:59 Plt Count 247 X10^3/uL (150.0-450.0) 12/17/22 04:59 MPV 7.8 fL (7.4-11.0) 12/17/22 04:59 Neut % (Auto) 50.4 % (42.0-75.0) 12/17/22 04:59 Lymph % (Auto) 32.9 % (21.0-51.0) 12/17/22 04:59 [place] % (Auto) 10.8 % (0.0-13.0) 12/17/22 04:59 Eos % (Auto) 5.0 % (0.9-2.9) H 12/17/22 04:59 Baso % (Auto) 0.9 % (0.2-1.0) 12/17/22 04:59 Neut # (Auto) 2.5 x10^3/uL (2.2-4.8) 12/17/22 04:59 Lymph # (Auto) 1.6 X10^3/uL (1.3-2.9) 12/17/22 04:59 [place] # (Auto) 0.5 x10^3/uL (0.3-0.8) 12/17/22 04:59 Eos # (Auto) 0.2 x10^3/uL (0.0-0.2) 12/17/22 04:59 Baso # (Auto) 0.0 X10^3/uL (0.0-0.1) 12/17/22 04:59 Absolute Nucleated RBC 0.0 /100WBC 12/17/22 04:59 Sodium 139 mmol/L (136-145) 12/17/22 04:59 Corrected Sodium TNP 12/17/22 04:59 Potassium 3.6 mmol/L (3.5-5.1) 12/17/22 04:59 Chloride 108 mmol/L (98-107) H 12/17/22 04:59 Carbon Dioxide 22.8 mmol/L (21-32) 12/17/22 04:59 BUN 9 mg/dL (7-18) 12/17/22 04:59 Creatinine 0.68 mg/dL (0.55-1.02) 12/17/22 04:59 Est GFR (MDRD) Af Amer > 60 (>60) 12/17/22 04:59 Est GFR (MDRD) Non-Af > 60 (>60) 12/17/22 04:59 Glucose 92 mg/dL (65-99) 12/17/22 04:59 Calcium 7.4 mg/dL (8.5-10.1) L 12/17/22 04:59 Corrected Calcium 8.7 mg/dL (8.5-10.1) 12/16/22 05:16 Total Bilirubin 0.20 mg/dL (0.2-1.0) 12/16/22 05:16 AST 14 Units/L (15-37) L 12/16/22 05:16 ALT 19 Units/L (12-78) 12/16/22 05:16 Alkaline Phosphatase 85 Units/L (46-116) 12/16/22 05:16 Total Protein 5.6 g/dL (6.4-8.2) L 12/16/22 05:16 Albumin 2.7 g/dL (3.4-5.0) L 12/16/22 05:16 Globulin 2.9 g/dL (2.5-4.5) 12/16/22 05:16 Albumin/Globulin Ratio 0.9 Ratio (1.1-2.1) L 12/16/22 05:16 Plan (1) Cellulitis of right hand: Status: Acute (2) Puncture wound: Status: Acute
--- NOTE | 2022-12-19 13:11 | W.DIS.FURT ---
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 Presented with redness and swelling of the proximal palmar right thumb and thenar eminence with redness. CT scan did not show obvious abscess however there was fluctuance noted. She was admitted at that time and placed on IV antibiotics. The next day , the 16 of December she underwent incision and drainage in this area. She has done well. Redness is resolving. Cultures grew methicillin-sensitive staphylococcus aureus. She is discharged home on clindamycin 150 mg four times a day and will follow up with me in 1 week. She will pack the wound daily. Vital Signs: Vital Signs (72 hours) 12/17/22 23:11 12/16/22 13:20 12/16/22 13:35 Temperature 98.1 F 98.2 F Pulse Rate 92 H Pulse Rate [Left Brachial] 82 74 Respiratory Rate 20 18 18 Blood Pressure 114/68 Blood Pressure [Left Arm] Blood Pressure [Right Arm] 121/72 110/66 O2 Sat by Pulse Oximetry 96 94 L 95 Oxygen Delivery Method Room Air Room Air 12/16/22 13:50 12/16/22 14:05 12/16/22 14:20 Temperature 98.1 F Pulse Rate Pulse Rate [Left Brachial] 70 73 65 Respiratory Rate 20 20 20 Blood Pressure Blood Pressure [Left Arm] Blood Pressure [Right Arm] 130/72 131/77 136/87 O2 Sat by Pulse Oximetry 99 98 99 Oxygen Delivery Method Room Air Room Air Room Air 12/16/22 16:00 12/16/22 19:42 12/16/22 20:12 Temperature 98.0 F Pulse Rate Pulse Rate [Left Brachial] 86 Respiratory Rate 20 20 20 Blood Pressure Blood Pressure [Left Arm] Blood Pressure [Right Arm] 122/79 O2 Sat by Pulse Oximetry 97 Oxygen Delivery Method Room Air 12/16/22 21:14 12/16/22 19:00 12/16/22 20:00 Temperature 98.0 F Pulse Rate Pulse Rate [Left Brachial] 92 H Respiratory Rate 20 18 Blood Pressure Blood Pressure [Left Arm] Blood Pressure [Right Arm] 141/87 O2 Sat by Pulse Oximetry 93 L Oxygen Delivery Method Room Air Room Air 12/17/22 00:00 12/16/22 22:14 12/17/22 04:00 Temperature 97.8 F 97.7 F Pulse Rate Pulse Rate [Left Brachial] 78 78 Respiratory Rate 18 20 18 Blood Pressure Blood Pressure [Left Arm] Blood Pressure [Right Arm] 110/65 105/60 O2 Sat by Pulse Oximetry 97 98 Oxygen Delivery Method Room Air Room Air 12/17/22 08:00 12/17/22 07:00 12/17/22 12:00 Temperature 98.5 F 98.1 F Pulse Rate Pulse Rate [Left Brachial] 77 85 Respiratory Rate 18 18 Blood Pressure Blood Pressure [Left Arm] Blood Pressure [Right Arm] 120/76 127/73 O2 Sat by Pulse Oximetry 97 97 Oxygen Delivery Method Room Air Room Air Room Air 12/17/22 16:00 12/17/22 20:38 12/17/22 19:00 Temperature 98.8 F Pulse Rate Pulse Rate [Left Brachial] 92 H Respiratory Rate 20 20 Blood Pressure Blood Pressure [Left Arm] Blood Pressure [Right Arm] 114/68 O2 Sat by Pulse Oximetry 96 Oxygen Delivery Method Room Air Room Air 12/17/22 20:00 12/18/22 00:00 12/17/22 21:38 Temperature 98.1 F 98.0 F Pulse Rate Pulse Rate [Left Brachial] 88 76 Respiratory Rate 18 18 20 Blood Pressure Blood Pressure [Left Arm] 128/79 129/82 Blood Pressure [Right Arm] O2 Sat by Pulse Oximetry 98 97 Oxygen Delivery Method Room Air Room Air 12/18/22 04:00 12/18/22 07:00 12/18/22 08:00 Temperature 97.8 F 99.1 F Pulse Rate Pulse Rate [Left Brachial] 71 80 Respiratory Rate 20 20 Blood Pressure Blood Pressure [Left Arm] 160/87 Blood Pressure [Right Arm] 127/74 O2 Sat by Pulse Oximetry 97 94 L Oxygen Delivery Method Room Air Room Air Room Air 12/18/22 09:32 12/18/22 10:02 Temperature Pulse Rate Pulse Rate [Left Brachial] Respiratory Rate 20 20 Blood Pressure Blood Pressure [Left Arm] Blood Pressure [Right Arm] O2 Sat by Pulse Oximetry Oxygen Delivery Method [facility]: Laboratory Last Values WBC 4.9 X10^3/uL (3.6-10.0) 12/17/22 04:59 RBC 3.70 X10^6/uL (3.5-5.4) 12/17/22 04:59 Hgb 11.0 g/dL (12.0-16.0) L 12/17/22 04:59 Hct 32.3 % (36.0-47.0) L 12/17/22 04:59 MCV 87.5 fL (80.0-100.0) 12/17/22 04:59 MCH 29.7 pg (27.0-34.0) 12/17/22 04:59 MCHC 33.9 g/dL (33.0-35.0) 12/17/22 04:59 RDW 13.2 % (11.6-16.5) 12/17/22 04:59 Plt Count 247 X10^3/uL (150.0-450.0) 12/17/22 04:59 MPV 7.8 fL (7.4-11.0) 12/17/22 04:59 Neut % (Auto) 50.4 % (42.0-75.0) 12/17/22 04:59 Lymph % (Auto) 32.9 % (21.0-51.0) 12/17/22 04:59 [place] % (Auto) 10.8 % (0.0-13.0) 12/17/22 04:59 Eos % (Auto) 5.0 % (0.9-2.9) H 12/17/22 04:59 Baso % (Auto) 0.9 % (0.2-1.0) 12/17/22 04:59 Neut # (Auto) 2.5 x10^3/uL (2.2-4.8) 12/17/22 04:59 Lymph # (Auto) 1.6 X10^3/uL (1.3-2.9) 12/17/22 04:59 [place] # (Auto) 0.5 x10^3/uL (0.3-0.8) 12/17/22 04:59 Eos # (Auto) 0.2 x10^3/uL (0.0-0.2) 12/17/22 04:59 Baso # (Auto) 0.0 X10^3/uL (0.0-0.1) 12/17/22 04:59 Absolute Nucleated RBC 0.0 /100WBC 12/17/22 04:59 Sodium 139 mmol/L (136-145) 12/17/22 04:59 Corrected Sodium TNP 12/17/22 04:59 Potassium 3.6 mmol/L (3.5-5.1) 12/17/22 04:59 Chloride 108 mmol/L (98-107) H 12/17/22 04:59 Carbon Dioxide 22.8 mmol/L (21-32) 12/17/22 04:59 BUN 9 mg/dL (7-18) 12/17/22 04:59 Creatinine 0.68 mg/dL (0.55-1.02) 12/17/22 04:59 Est GFR (MDRD) Af Amer > 60 (>60) 12/17/22 04:59 Est GFR (MDRD) Non-Af > 60 (>60) 12/17/22 04:59 Glucose 92 mg/dL (65-99) 12/17/22 04:59 Calcium 7.4 mg/dL (8.5-10.1) L 12/17/22 04:59 Corrected Calcium 8.7 mg/dL (8.5-10.1) 12/16/22 05:16 Total Bilirubin 0.20 mg/dL (0.2-1.0) 12/16/22 05:16 AST 14 Units/L (15-37) L 12/16/22 05:16 ALT 19 Units/L (12-78) 12/16/22 05:16 Alkaline Phosphatase 85 Units/L (46-116) 12/16/22 05:16 Total Protein 5.6 g/dL (6.4-8.2) L 12/16/22 05:16 Albumin 2.7 g/dL (3.4-5.0) L 12/16/22 05:16 Globulin 2.9 g/dL (2.5-4.5) 12/16/22 05:16 Albumin/Globulin Ratio 0.9 Ratio (1.1-2.1) L 12/16/22 05:16 Reason For Visit: CELLULITIS RIGHT HAND, PUNTURE WOUND Discharge Diagnosis All Active Problems (Updated 12/15/22 @ 23:54 by MARYLU AVILA) Cellulitis of hand, right (Acute) Puncture wound of hand, right (Acute) Puncture wound (Acute) Cellulitis of right hand (Acute) Plan of Treatment: Continue with present treatment and follow up plan. Pt is to keep follow up appointment as instructed and take medications as ordered. 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 Presented with redness and swelling of the proximal palmar right thumb and thenar eminence with redness. CT scan did not show obvious abscess however there was fluctuance noted. She was admitted at that time and placed on IV antibiotics. The next day , the 16 of December she underwent incision and drainage in this area. She has done well. Redness is resolving. Cultures grew methicillin-sensitive staphylococcus aureus. She is discharged home on clindamycin 150 mg four times a day and will follow up with me in 1 week. She will pack the wound daily. Patient Disposition: HOME, SELF-CARE Condition: Stable Health Concerns: Post Hospitalization: new medications and changes needed to prevent readmission or further decline. Pt educated and given instructions on all concerns. Care Plan Goals: Problem: Pain/Alteration in Comfort Goal: Improve/ Resolve Pain; Achieve Pain Tolerance Instructions: Take pain medications as prescribed. Contact your primary care pro vider if your pain is unrelieved or worsens. Follow up with primary care provider as directed. Plan of Treatment: Continue with present treatment and follow up plan. Pt is to keep follow up appointment as instructed and take medications as ordered. Assessment: see above Prescription drug monitoring program results: PDMP reviewed and no concerns identified Prescriptions: New clindamycin HCl 300 mg Capsule 300 mg PO QID Qty: 40 0RF Orders to Discharge Patient Discharge Orders: Discharge (Routine); Ordered 12/18/22 Ordered By: Kashmir Packer Follow ups/Referrals Follow ups/Referrals: Kashmir Packer [STAFF PHYSICIAN] - 12/31/22 10:30 am Instructions Instructions: Cellulitis, Adult, Puncture Wound, [id number], Cellulitis, Adult, [id number] Stand Alone Forms: Excuse From Work or School, Patient Portal
--- NOTE | 2022-12-19 17:07 | PCM.PROG ---
Progress Note Progress Note for Day of Date of Exam: 12/18/22 Subjective Subjective: Patient is resting in bed comfortably. She POD#2 I&D and reports continued improvement in swelling and pain. No acute events overnight. Labs reviewed: Wbc 4.9, Hgb 11, Plt 247, Na 139, K 3.6, Creatinine 0.68, Glucose 92. Wound culture staph aureus. Plan: Pt stable, to be discharged on clindamycin. Follow surgery recommendations and instructions on wound dressing changes. Past Medical Family Social History Allergies: Allergies No Known Allergies Allergy (Verified 12/15/22 05:00) Review of Systems ROS changes noted: See HPI Vital Signs and I&O's Vital Signs: Temperature 99.1 F Pulse Rate [Left Brachial] 80 Pulse Rate 92 Respiratory Rate 20 Blood Pressure [Right Arm] 127/74 Blood Pressure [Left Arm] 160/87 Blood Pressure 114/68 O2 Sat by Pulse Oximetry 94 Intake and Output: Intake & Output 12/16/22 12/17/22 12/18/22 12/19/22 23:59 23:59 23:59 23:59 Intake Total 4106 / 4106 4475 / 4475 [id number] Output Total 1000 / 1000 Balance 3106 / 3106 4475 / 4475 1939 Physical Exam Oriented: Normal, Time, Person and Place Eyes: Normal Ear: Normal Nose: Normal Throat: Normal Cardiovascular: Normal : Normal Auscultation: Bowel Sounds: Normal Tenderness: Normal Skin: Other (redness, swelling proximal right thumb and right thenar eminence) Musculoskeletal: Right and Hand (limited ROM, in wound dressing) Psychiatric: Normal Mood Description: Calm Affect: Normal Speech Pattern: Clear and Appropriate Laboratory and Diagnostics Result Diagrams: 12/17/22 04:59 12/17/22 04:59 Labs: 12/16/22 13:01 Hand - Right Wound Gram Stain - Final 12/16/22 13:01 Hand - Right Wound Culture - Preliminary Staphylococcus Aureus 12/15/22 04:55 Blood Blood Culture - Preliminary 12/15/22 04:49 Blood Blood Culture - Preliminary Laboratory WBC 4.9 X10^3/uL (3.6-10.0) 12/17/22 04:59 RBC 3.70 X10^6/uL (3.5-5.4) 12/17/22 04:59 Hgb 11.0 g/dL (12.0-16.0) L 12/17/22 04:59 Hct 32.3 % (36.0-47.0) L 12/17/22 04:59 MCV 87.5 fL (80.0-100.0) 12/17/22 04:59 MCH 29.7 pg (27.0-34.0) 12/17/22 04:59 MCHC 33.9 g/dL (33.0-35.0) 12/17/22 04:59 RDW 13.2 % (11.6-16.5) 12/17/22 04:59 Plt Count 247 X10^3/uL (150.0-450.0) 12/17/22 04:59 MPV 7.8 fL (7.4-11.0) 12/17/22 04:59 Neut % (Auto) 50.4 % (42.0-75.0) 12/17/22 04:59 Lymph % (Auto) 32.9 % (21.0-51.0) 12/17/22 04:59 [place] % (Auto) 10.8 % (0.0-13.0) 12/17/22 04:59 Eos % (Auto) 5.0 % (0.9-2.9) H 12/17/22 04:59 Baso % (Auto) 0.9 % (0.2-1.0) 12/17/22 04:59 Neut # (Auto) 2.5 x10^3/uL (2.2-4.8) 12/17/22 04:59 Lymph # (Auto) 1.6 X10^3/uL (1.3-2.9) 12/17/22 04:59 [place] # (Auto) 0.5 x10^3/uL (0.3-0.8) 12/17/22 04:59 Eos # (Auto) 0.2 x10^3/uL (0.0-0.2) 12/17/22 04:59 Baso # (Auto) 0.0 X10^3/uL (0.0-0.1) 12/17/22 04:59 Absolute Nucleated RBC 0.0 /100WBC 12/17/22 04:59 Sodium 139 mmol/L (136-145) 12/17/22 04:59 Corrected Sodium TNP 12/17/22 04:59 Potassium 3.6 mmol/L (3.5-5.1) 12/17/22 04:59 Chloride 108 mmol/L (98-107) H 12/17/22 04:59 Carbon Dioxide 22.8 mmol/L (21-32) 12/17/22 04:59 BUN 9 mg/dL (7-18) 12/17/22 04:59 Creatinine 0.68 mg/dL (0.55-1.02) 12/17/22 04:59 Est GFR (MDRD) Af Amer > 60 (>60) 12/17/22 04:59 Est GFR (MDRD) Non-Af > 60 (>60) 12/17/22 04:59 Glucose 92 mg/dL (65-99) 12/17/22 04:59 Calcium 7.4 mg/dL (8.5-10.1) L 12/17/22 04:59 Corrected Calcium 8.7 mg/dL (8.5-10.1) 12/16/22 05:16 Total Bilirubin 0.20 mg/dL (0.2-1.0) 12/16/22 05:16 AST 14 Units/L (15-37) L 12/16/22 05:16 ALT 19 Units/L (12-78) 12/16/22 05:16 Alkaline Phosphatase 85 Units/L (46-116) 12/16/22 05:16 Total Protein 5.6 g/dL (6.4-8.2) L 12/16/22 05:16 Albumin 2.7 g/dL (3.4-5.0) L 12/16/22 05:16 Globulin 2.9 g/dL (2.5-4.5) 12/16/22 05:16 Albumin/Globulin Ratio 0.9 Ratio (1.1-2.1) L 12/16/22 05:16 Plan (1) Cellulitis of right hand: Status: Acute (2) Puncture wound: Status: Acute
== END 2022-12-18 11:13 | disposition home or self-care (01) ==
LOC: ER 03:52 → MED/SURG 03:52
PROVIDERS: ADMIT Internal Medicine; ATTEND Internal Medicine
DX: L03.113 Cellulitis of right upper limb; S61.431A Puncture wound without foreign body of right hand, initial encounter; Y99.8 Other external cause status; Z23 Encounter for immunization; W45.8XXA Other foreign body or object entering through skin, initial encounter; Z72.0 Tobacco use; Y93.89 Activity, other specified; Y92.89 Other specified places as the place of occurrence of the external cause; K21.9 Gastro-esophageal reflux disease without esophagitis; B95.61 Methicillin susceptible Staphylococcus aureus infection as the cause of diseases classified elsewhere